=== PATIENT | male | born 1985 | race Two or more races ===

== ENCOUNTER 2018-04-06 14:23 | Emergency (ER) | payer MEDICAID ==
[~2018-04-06] VITALS: Ht 175.3 cm; Wt 135.9 kg
[2018-04-06 14:31] VITALS: BP 160/106
[2018-04-06] MEDS ORDERED: OXYcodone/APAP 5/325MG TABLET ONE (14:54)
[2018-04-06] MEDS ORDERED: KETOROLAC 30 MG/1 ML ONE (14:54)
[2018-04-06] MEDS ORDERED: KETOROLAC 30 MG/1 ML IM ONE (15:00)
[2018-04-06] MEDS ORDERED: OXYcodone/APAP 5/325MG TABLET PO ONE (15:00)
== END 2018-04-06 15:24 | disposition home or self-care (01) ==
LOC: ED 15:18
DX: K08.89 Other specified disorders of teeth and supporting structures (principal)
CPT/HCPCS: 96372; 99283; J1885